=== PATIENT | female | born 1985 | race Caucasian/White ===

== ENCOUNTER 2017-01-26 05:30 | Day surgery (SDC) | payer OTHER ==
[2017-01-24 14:04] LABS: BASOPHILS 0.2 % (0-2); EOSINOPHILS 0.5 % (0-7); HEMATOCRIT 44.1 % (36.0-48.0); IMMATURE GRANULOCYTES 0.2 % (0-5); LYMPHOCYTES 48.6 % (15-50); MCH 32.2 pg (26.0-34.0); MCV 94.6 fL (80.0-100.0); MEAN PLATELET VOLUME 10.3 fL (7.4-10.4); NEUTROPHILS 43.5 % (40-80); PLATELET COUNT 252 10x3/uL (130-400); RBC 4.66 10x6/uL (4.00-5.40); RDW 12.4 % (11.5-14.5); WBC 6.5 10x3/uL (4.8-10.8)
[2017-01-24 14:14] LABS: CALC OSMOLALITY 273 mosm/kg (275-300); CARBON DIOXIDE 26.4 mmol/L (21.0-32.0); CHLORIDE - SERUM 103 mmol/L (98-107); GLUCOSE 82 mg/dL (74-106); POTASSIUM - SERUM 4.5 mmol/L (3.5-5.1); SODIUM 138 mmol/L (136-145); UREA NITROGEN 11 mg/dL (7-18)
[2017-01-24 14:15] LABS: CREATININE - SERUM 0.1 mg/dL (0.6-1.3); eGFR NON AFRICAN AMERICAN > 90 mL/min (90-120)
[~2017-01-26] VITALS: Ht 160 cm; Wt 86.2 kg
[~2017-01-26 05:30] MED LIST: ADIPEX-P37.5 MG PO; AMBIEN10 MG PO; SEROQUEL25 MG PO
[2017-01-26 07:02] VITALS: BP 119/72; Ht 160 cm; Wt 86.2 kg
== END 2017-01-26 11:50 | disposition home or self-care (01) ==
LOC: D.OPS 05:30 → D.PAN 09:00 → D.OPS 11:50
PROVIDERS: Obstetrics & Gynecology
DX: N91.2 Amenorrhea, unspecified (principal); R93.8 Abnormal findings on diagnostic imaging of other specified body structures; Z01.812 Encounter for preprocedural laboratory examination; F32.9 Major depressive disorder, single episode, unspecified; Z79.899 Other long term (current) drug therapy

== ENCOUNTER 2017-08-24 05:07 | Inpatient (IN) | payer OTHER ==
[2017-08-23 13:53] LABS: BASOPHILS 0.3 % (0-2); EOSINOPHILS 0.3 % (0-7); HEMATOCRIT 42.8 % (36.0-48.0); HEMOGLOBIN 14.6 g/dL (12-16); IMMATURE GRANULOCYTES 0.1 % (0-5); LYMPHOCYTES 45.2 % (15-50); MCH 32.4 pg (26.0-34.0); MCHC 34.1 g/dL (31.0-37.0); MCV 95.1 fL (80.0-100.0); MEAN PLATELET VOLUME 9.8 fL (7.4-10.4); MONOCYTES 8.2 % (2-11); NEUTROPHILS 45.9 % (40-80); PLATELET COUNT 240 10x3/uL (130-400); RDW 12.6 % (11.5-14.5); WBC 7.4 10x3/uL (4.8-10.8)
[2017-08-24] VITALS (7 sets, daily range): BP systolic 122–135; BP diastolic 71–81; Ht 160 cm; Wt 81.8 kg
[~2017-08-24] VITALS: Ht 160 cm; Wt 81.8 kg
[~2017-08-24 05:07] MED LIST changes: +IMITREX50 MG PO; -SEROQUEL25 MG PO; +SEROQUEL50 MG PO; +TOPAMAX50 MG PO
[2017-08-24 07:45] LABS: HCG URINE NEGATIVE (NEGATIVE)
[2017-08-24 14:24] LABS: BASOPHILS 0.1 % (0-2); EOSINOPHILS 0 % (0-7); HEMATOCRIT 42.7 % (36.0-48.0); HEMOGLOBIN 14.5 g/dL (12-16); IMMATURE GRANULOCYTES 0.2 % (0-5); LYMPHOCYTES 11.6 % (15-50); MCH 32.2 pg (26.0-34.0); MCV 94.7 fL (80.0-100.0); MEAN PLATELET VOLUME 9.8 fL (7.4-10.4); MONOCYTES 4.3 % (2-11); NEUTROPHILS 83.8 % (40-80); PLATELET COUNT 218 10x3/uL (130-400); RBC 4.51 10x6/uL (4.00-5.40); RDW 12.5 % (11.5-14.5)
[2017-08-24 14:29] LABS: WBC 10.5 10x3/uL (4.8-10.8)
[2017-08-24 14:50] LABS: CALC OSMOLALITY 274 mosm/kg (275-300); CALCIUM 8.2 mg/dL (8.5-10.1); CARBON DIOXIDE 23.8 mmol/L (21.0-32.0); CHLORIDE - SERUM 104 mmol/L (98-107); CREATININE - SERUM 0.8 mg/dL (0.6-1.3); GLUCOSE 111 mg/dL (74-106); POTASSIUM - SERUM 3.7 mmol/L (3.5-5.1); SODIUM 138 mmol/L (136-145); UREA NITROGEN 8 mg/dL (7-18); eGFR NON AFRICAN AMERICAN 87 mL/min (90-120)
[2017-08-25 00:10] VITALS: BP 107/63
[2017-08-25 03:48] VITALS: BP 119/69
[2017-08-25 05:40] LABS: BASOPHILS 0.1 % (0-2); EOSINOPHILS 0.1 % (0-7); HEMATOCRIT 37.5 % (36.0-48.0); HEMOGLOBIN 12.4 g/dL (12-16); IMMATURE GRANULOCYTES 0.1 % (0-5); LYMPHOCYTES 33.3 % (15-50); MCH 31.5 pg (26.0-34.0); MCHC 33.1 g/dL (31.0-37.0); MCV 95.2 fL (80.0-100.0); MONOCYTES 11.1 % (2-11); NEUTROPHILS 55.3 % (40-80); PLATELET COUNT 215 10x3/uL (130-400); RBC 3.94 10x6/uL (4.00-5.40); RDW 12.5 % (11.5-14.5)
[2017-08-25 05:52] LABS: WBC 7.7 10x3/uL (4.8-10.8)
[2017-08-25 05:57] LABS: CALC OSMOLALITY 275 mosm/kg (275-300); CALCIUM 7.9 mg/dL (8.5-10.1); CARBON DIOXIDE 24.9 mmol/L (21.0-32.0); CHLORIDE - SERUM 105 mmol/L (98-107); CREATININE - SERUM 0.7 mg/dL (0.6-1.3); GLUCOSE 100 mg/dL (74-106); POTASSIUM - SERUM 3.6 mmol/L (3.5-5.1); SODIUM 139 mmol/L (136-145); UREA NITROGEN 7 mg/dL (7-18); eGFR NON AFRICAN AMERICAN > 90 mL/min (90-120)
[2017-08-25 14:35] VITALS: BP 140/85
[2017-08-25 19:11] VITALS: BP 133/64
[2017-08-25 19:56] LABS: APPEARANCE CLEAR (CLEAR); BILIRUBIN NEGATIVE (NEGATIVE); COLOR YELLOW (YELLOW); GLUCOSE NEGATIVE (NEGATIVE); KETONE NEGATIVE (NEGATIVE); NITRITE NEGATIVE (NEGATIVE); PROTEIN NEGATIVE (NEGATIVE); UROBILINOGEN NORMAL (NORMAL)
[2017-08-25 23:39] VITALS: BP 106/57
[2017-08-26 03:36] VITALS: BP 90/52
[2017-08-26 07:30] VITALS: BP 119/71
[2017-08-26 15:00] VITALS: BP 124/73
[2017-08-26 19:14] VITALS: BP 134/84
[2017-08-26 22:51] VITALS: BP 137/58
[2017-08-27 02:58] VITALS: BP 104/56
[2017-08-27 07:29] VITALS: BP 116/63
[2017-08-27] MEDS ORDERED: HYDROCODONE-APA1 TAB PO (08:48)
[2017-08-27] MEDS ORDERED: MOTRIN600 MG PO (08:49)
== END 2017-08-27 09:39 | disposition home or self-care (01) | DRG 743 ==
LOC: D.SDCHOLD 05:07 → D.WS 05:07 → D.LD 05:07 → D.SDCHOLD 08:30 → D.LD 11:48 → D.WS 20:28 → D.LD 08-25 14:00
PROVIDERS: Obstetrics & Gynecology
PROC: 0TNB0ZZ Release Bladder, Open Approach (ICD-10-PCS; 2017-08-24)
PROC: 0UB70ZZ Excision of Bilateral Fallopian Tubes, Open Approach (ICD-10-PCS; 2017-08-24)
PROC: 0UT90ZZ Resection of Uterus, Open Approach (ICD-10-PCS; principal; 2017-08-24 08:30)
DX: N92.0 Excessive and frequent menstruation with regular cycle (principal); N85.00 Endometrial hyperplasia, unspecified; G43.909 Migraine, unspecified, not intractable, without status migrainosus; F41.9 Anxiety disorder, unspecified; N32.89 Other specified disorders of bladder

== ENCOUNTER 2018-08-24 05:30 | Day surgery (SDC) | payer MEDICAID ==
[2018-08-22 15:13] LABS: HEMATOCRIT 41.7 % (36.0-48.0); HEMOGLOBIN 14.4 g/dL (12-16); MCH 32.4 pg (26.0-34.0); MCHC 34.5 g/dL (31.0-37.0); MCV 93.7 fL (80.0-100.0); RBC 4.45 10x6/uL (4.00-5.40); RDW 12.6 % (11.5-14.5); WBC 6.7 10x3/uL (4.8-10.8)
[2018-08-22 15:16] LABS: PLATELET COUNT 267 10x3/uL (130-400)
[2018-08-22 16:25] LABS: LYMPHOCYTES 60 % (15-50); MONOCYTES 1 % (2-11); NEUTROPHILS 39 % (40-80); PLATELET ESTIMATE NORMAL
[~2018-08-24] VITALS: Ht 160 cm; Wt 94.8 kg
[~2018-08-24 05:30] MED LIST changes: +HYDROCODONE-APA1 TAB PO; +MOTRIN600 MG PO
[2018-08-24 06:10] VITALS: BP 123/83
[2018-08-24 06:24] VITALS: Ht 160 cm; Wt 94.8 kg
--- NOTE | 2018-08-24 11:31 | NUR ---
1105 PT VOIDED WITHOUT DIFFICULTY 1113 IV DC'D. CATHETER INTACT. PRESSURE HELD UNTIL BLEEDING STOPPED. BANDAID APPLIED. DENIES NAUSEA. NO VOMITING. PT STATES SHE FEELS GOOD ENOUGH TO GO HOME.
== END 2018-08-24 11:19 | disposition home or self-care (01) ==
LOC: D.OPS 05:30 → D.PAN 07:30 → D.OPS 07:30
PROVIDERS: Obstetrics & Gynecology
DX: N92.0 Excessive and frequent menstruation with regular cycle (principal); N73.6 Female pelvic peritoneal adhesions (postinfective); N72 Inflammatory disease of cervix uteri; N85.00 Endometrial hyperplasia, unspecified; F41.9 Anxiety disorder, unspecified; Z01.812 Encounter for preprocedural laboratory examination

== ENCOUNTER → 2019-02-11 09:18 | Outpatient (CLI) | payer MEDICAID ==
[2018-08-24 06:24] VITALS: BMI 31.9
== END | disposition home or self-care (01) ==
LOC: D.MRI 09:18
PROVIDERS: ATTEND Orthopaedic Surgery
DX: M76.52 Patellar tendinitis, left knee (principal)